=== PATIENT | female | born 1980 | race Caucasian/White ===

== ENCOUNTER 2019-03-21 10:09 | Emergency (ER) | payer BC, OTHER ==
--- NOTE | 2019-03-21 10:52 | ED ---
GI/ HPI - HPI Summary HPI Summary: 38 year old female presents to the emergency department with a chief complaint of rectal pain secondary to a swollen bulge near the anus starting yesterday. Patient had been constipated for a week before pain symptoms started. She reports light hematochezia over the last week. Stool consistency has improved over the last several days. Walking quickly and sitting exacerbates the pain. No history of rectal prolapse, htn, and dm. She takes cholase three times a day, eats a high fiber diet. This is her first . Medications reviewed. Allergies noted. - History of Current Complaint Chief Complaint: EDRectalPain Time Seen by Provider: 03/21/19 10:35 Stated Complaint: -POSSIBLE RECTAL PROLAPSE Hx Obtained From: Patient Onset/Duration: Started Days Ago Timing: Constant Severity: Moderate Current Severity: Moderate Pain Intensity: 5 Location of Pain: Rectal Pain Characteristics: Aching Associated Signs and Symptoms: Positive: Rectal Pain, Constipation, Blood w/ Stool Aggravating Factor(s): Sitting, Walking/Exertion Alleviating Factor(s): Nothing - Allergy/Home Medications Allergies/Adverse Reactions: Allergies Allergy/AdvReac Type Severity Reaction Status Date / Time crab Allergy Vomiting Verified 03/21/19 10:15 PMH/Surg Hx/FS Hx/Imm Hx Endocrine/Hematology History: Denies: Hx Diabetes Cardiovascular History: Denies: Hx Hypertension GI History: Denies: Other GI Disorders - rectal prolapse Infectious Disease History: No Infectious Disease History: Denies: Traveled Outside the [place] in Last 30 Days - Family History Known Family History: Negative: Diabetes - Social History Alcohol Use: Occasionally Substance Use Type: Reports: None Smoking Status (MU): Never Smoked Tobacco Review of Systems Positive: Other - Constipation, Rectal pain, rectal prolapse Positive: Edema All Other Systems Reviewed And Are Negative: Yes Physical Exam - Summary Physical Exam Summary: Constitutional: Well-developed, Well-nourished, Alert. (-) Distressed Skin: Warm, Dry HENT: Normocephalic; Atraumatic Eyes: Conjunctiva normal Neck: Musculoskeletal ROM normal neck. (-) JVD, (-) Stridor, (-) Tracheal deviation Cardio: Rhythm regular, rate normal, Heart sounds normal; Intact distal pulses; Radial pulses are 2+ and symmetric. (-) Murmur. Rectal Exam: Hemorrhoid present, not bleeding or ecchymotic. Pulmonary/Chest wall: Effort normal. (-) Respiratory distress, (-) Wheezes, (-) Rales Abd: Soft, (-) tenderness, (-) Distension, (-) Guarding, (-) Rebound Musculoskeletal: (-) Edema Lymph: (-) Cervical adenopathy Neuro: Alert, Oriented x3 Psych: Mood and affect Normal Triage Information Reviewed: Yes Vital Signs On Initial Exam: Initial Vitals Temp Pulse Resp BP Pulse Ox 97.4 F 89 16 121/74 98 03/21/19 10:12 03/21/19 10:12 03/21/19 10:12 03/21/19 10:12 03/21/19 10:12 Vital Signs Reviewed: Yes Procedures - Sedation Patient Received Moderate/Deep Sedation with Procedure: No Diagnostics - Vital Signs Vital Signs Temp Pulse Resp BP Pulse Ox 03/21/19 10:12 97.4 F 89 16 121/74 98 - Laboratory Lab Statement: Any lab studies that have been ordered have been reviewed, and results considered in the medical decision making process. GIGU Course/Dx - Course Course Of Treatment: Patient is here with a hemorrhoid secondary to constipation from . Patient was educated on hemorrhoid management and started on Anusol, sits baths, Preparation H with lidocaine. Patient has appointment with her [facility] tomorrow for prompt follow-up. - Diagnoses Provider Diagnoses: Hemorrhoid Discharge ED - Sign-Out/Discharge Documenting (check all that apply): Patient Departure - discharge - Discharge Plan Condition: Stable Disposition: HOME Prescriptions: Hydrocortisone SUPP* [Anusol HC Supp*] 25 mg DC QAM 5 Days #5 supp Patient Education Materials: Hemorrhoids (ED) Referrals: Shayna Vila MD [Primary Care Provider] - Additional Instructions: epsom salts donut pillow preperation H with lidocaine Follow up with your OBGYN in the next week. You may take an Epsom salt bath 2-3 times a day to reduce inflammation, use a donut pillow to aide sitting, or use preperation H with lidocaine to reduce pain. Return to the ED with new or worsening symptoms. - Billing Disposition and Condition Condition: STABLE Disposition: Home - Attestation Statements Document Initiated by Scribe: Yes Documenting Scribe: Sudhakar Dobbs Provider For Whom Scribe is Documenting (Include Credential): Rehan Aguilar MD Scribe Attestation: ISudhakar, scribed for Rehan Aguilar MD on 03/21/19 at 2046. Scribe Documentation Reviewed: Yes Provider Attestation: The documentation as recorded by the scribe, Sudhakar Dobbs accurately reflects the service I personally performed and the decisions made by me, Rehan Aguilar MD Status of Scribe Document: Viewed
[2019-03-21 11:40] VITALS: BP 126/69
== END 2019-03-21 11:29 | disposition home or self-care (01) ==
LOC: ED 10:09
DX: O22.40 Hemorrhoids in pregnancy, unspecified trimester (principal); K92.1 Melena; K59.00 Constipation, unspecified; Z3A.00 Weeks of gestation of pregnancy not specified; Z91.013 Allergy to seafood
CPT/HCPCS: 99282

== ENCOUNTER 2019-05-13 01:22 | Inpatient (IN) | payer BC, OTHER ==
[2019-05-13] MEDS ORDERED: OXYTOCIN* 10 UNITS/ML 1 ML VIAL IM ONE (02:11)
[2019-05-13] MEDS ORDERED: Glycerin ADULT SUPP PR PRN (02:11)
--- NOTE | 2019-05-13 02:47 | HP ---
General Information - Reason for Visit contractions - General Information Maternal Age: 38 Grav: 1 Para: 0 SAB: 0 IEA: 0 Estimated Due Date: 05/31/19 Determined By: LMP Maternal Blood Type and Rh: B Positive - Results this Serology/RPR Result: Non-Reactive Rubella Result: Immune HBsAg Result: Negative HIV Result: Negative GBS Culture Result: Negative Past Medical History Pertinent Past Medical History: See Records Pertinent Past Surgical History: See Records Pertinent Family History: See Records - Antepartal Records Antepartal Records: Reviewed, Complicated by: - + emelia / Review of Systems Constitutional: Uncomfortable CV Complaint: No Respiratory: Shortness of Breath: No Musculoskeletal: Contractions Neurological: No Headache Movement: Normal Exam Allergies/Adverse Reactions: Allergies crab Allergy (Verified 03/21/19 10:15) Vomiting - Measurements Height: 5 ft 5 in Weight: 136 lb Weight in lbs: [id number] Body Mass Index (BMI): 22.6 Pre- Weight: 113 lb Weight Gained This : 23 lbs and 0 ozs - Exam Extremities: No Edema Heart: Normal Rhythm/Heart Sounds HEENT: No Significant Findings Lungs: Clear Bilaterally Rectal: Rectal Exam Deferred Reflexes: DTR 2+ Targeted Exam Findings Cervical Exam: Complete Effacement: 100% Station: +2 Presenting Part: Vertex Membrane Status: SROM EFM Findings - External Monitor Findings Baseline Heart Rate: 115 External Monitor Findings: Accelerations Present, No Pattern of Variable or Late Decelerations, Variability Moderate, Baseline Stable Contractions: Regular Assessment/Plan - Assessment admitted / pushing . steady descent with delivery/ precipitous labor - Plan Plan: Admit - Anticipate Vaginal Delivery
[2019-05-13] MEDS ORDERED: Lactated Ringers 1000 ML Bag* 1,000 ML IV SCH (03:00)
[2019-05-13] MEDS: Ibuprofen TAB* 600 MG PO PRN ×3 (03:52→19:40)
[2019-05-13] MEDS: Dibucaine 1% 28.35 GM TUBE PR PRN ×2 (03:53→21:34)
[2019-05-13] MEDS: Witch Hazel PAD* JAR TOPICAL PRN (03:53)
[2019-05-13] MEDS ORDERED: Ammonia Inhalant* 1 EA AMP ONE (04:47)
[2019-05-13] MEDS ORDERED: Lidocaine 1% INJ* 10 MG/ML 30 ML SDV ONE (06:33)
[2019-05-13] MEDS: Acetaminophen TAB* 325 MG PO PRN (09:11)
[2019-05-13] MEDS: Docusate CAP* 100 MG PO SCH ×3 (09:11→21:34)
--- NOTE | 2019-05-13 10:12 | PROCNOTE ---
[facility] OB: Delivery Note - Delivery A Date of : 05/13/19 Time of : 01:43 Sex: Male Weight at : 5 lb 9 oz Score 1 Minute: 9 Score 5 Minutes: 9 Gestational Age in Weeks and Days at Delivery: 37 Weeks and 3 Days Delivery Method: Spontaneous Vaginal Labor: Spontaneous Did Patient attempt ?: N/A, No Previous Amniotic Fluid: Clear Anesthesia/Analgesia: None Delivered By: Adarsh Christian - Nursery Level of Nursery: Regular/Bedside - Perineum Perineal Injury: Periurethral Laceration, 2nd Degree Perineal Repair: By Delivering Practioner - repair with 3-0 vicryl and rapide - Events Delivery Events of Note: Pitocin Only After Delivery, Precipitous Delivery - pt pushe well with deep variables toward end of 2nd stage. baby vigorous at
[2019-05-13] MEDS: Simethicone TAB* 80 MG TAB.CHEW PO SCH ×3 (11:31→19:02)
[2019-05-14] MEDS: Ibuprofen TAB* 600 MG PO PRN ×3 (02:42→20:32)
[2019-05-14] MEDS: Acetaminophen TAB* 325 MG PO PRN ×4 (03:54→20:32)
[2019-05-14 05:56] LABS: ABS Eosinophils 0.1 10^3/ul (0-0.6); ABS Lymphocytes 1.8 10^3/ul (1.0-4.8); ABS Monocytes 0.6 10^3/ul (0-0.8); Eosinophil % 1.6 %; Hematocrit 25 % (35-47); Hemoglobin 8.6 g/dL (12.0-16.0); Lymphocyte % 20.9 %; Mean Corpuscular HGB Conc 34 g/dL (31-36); Mean Corpuscular Hemoglobin 30 pg (27-31); Mean Corpuscular Volume 87 fL (80-97); Nucleated Red Blood Cells % 0.1; Platelet Count 200 10^3/uL (150-450); Red Blood Count 2.87 10^6 /uL (3.70-4.87); Red Cell Distribution Width 14 % (10-15); White Blood Count 8.5 10^3/uL (3.5-10.8)
[2019-05-14] MEDS: Docusate CAP* 100 MG PO SCH ×3 (09:03→20:32)
[2019-05-14] MEDS: Ferrous Gluconate TAB* 324 MG TAB PO SCH (10:34)
--- NOTE | 2019-05-14 13:04 | PTEDU ---
Patient Name: ARMOND PENN PENNARMOND selected video: BBOB: Nurturing Your Gorgeous &Growing Baby by to view on 05/14/2019 at 1:03:47 PM [id number]
--- NOTE | 2019-05-14 18:44 | PN ---
Progress Note - Progress Note Date of Service: 05/14/19 Note: POST PROGRESS NOTE S: Pt is Para 1 pp d #1 s/p at 37 weeks. Doing well today. Voiding spontaneouslly. Lochia minimal. Pain well controlled. O: AVSS, afebrile, hemodynamically stable Gen: nad, aaox3 CV: RRR Pulm: ctabl Abd: soft, nd, nttp, fundus firm below the U : 2nd degree perineal laceration in tact, healing well, no evidence of breakdown or infection Ext: warm, nttp A/P: 38 y/o P1 PPD #1 s/p at 37 weeks, result of IVF - doing well - anemia noted, pt is asymptomatic, declines Fe, for fear of constipation and further exacerbation of hemorrhoids which have been very troubling for patient. discussed replenishing Fe in diet, continue GI regimen - meeting all post goals - continue routine care to perineum - continue witch leticia/tucks to hemorrhoids - - continue routine post care DO CLIFF Cox
[2019-05-15] MEDS: Dibucaine 1% 28.35 GM TUBE PR PRN ×2 (04:48→13:38)
[2019-05-15] MEDS: Witch Hazel PAD* JAR TOPICAL PRN ×2 (04:48→13:38)
[2019-05-15 08:17] VITALS: BP 105/64
[2019-05-15] MEDS: Ferrous Gluconate TAB* 324 MG TAB PO SCH (09:05)
[2019-05-15] MEDS: Acetaminophen TAB* 325 MG PO PRN (09:08)
[2019-05-15] MEDS: Docusate CAP* 100 MG PO SCH ×2 (09:08→13:38)
[2019-05-15] MEDS: Ibuprofen TAB* 600 MG PO PRN (09:08)
--- NOTE | 2019-05-25 16:11 | PROCNOTE ---
[facility] OB: Delivery Note - Delivery A Date of : 05/13/19 Time of : 01:43 Sex: Female Weight at : 5 lb 9 oz Score 1 Minute: 9 Score 5 Minutes: 9 Gestational Age in Weeks and Days at Delivery: 37 Weeks and 3 Days Delivery Method: Spontaneous Vaginal Labor: Spontaneous Did Patient attempt ?: N/A, No Previous Amniotic Fluid: Clear Anesthesia/Analgesia: None Delivered By: Adarsh Christian - Nursery Level of Nursery: Regular/Bedside - Perineum Perineal Injury: 2nd Degree - repair with 3-0 vicryl and rapide Perineal Injury Comment: hemorrhoids not inflamed Perineal Repair: By Delivering Practioner - Events Delivery Events of Note: Pitocin Only After Delivery, Precipitous Delivery - pt pushe well with deep variables toward end of 2nd stage. baby vigorous at
== END 2019-05-15 17:10 | disposition home or self-care (01) | DRG 807 ==
LOC: MCHOBOUT 01:22 → MCHOB 01:23
PROVIDERS: ADMIT Obstetrics & Gynecology; ATTEND Obstetrics & Gynecology
PROC: 10E0XZZ Delivery of Products of Conception, External Approach (ICD-10-PCS; principal; 2019-05-13)
PROC: 0KQM0ZZ Repair Perineum Muscle, Open Approach (ICD-10-PCS; 2019-05-13)
DX: O60.20X0 Term delivery with preterm labor, unspecified trimester, not applicable or unspecified (principal); Z37.0 Single live birth; O70.1 Second degree perineal laceration during delivery; O62.3 Precipitate labor; O90.81 Anemia of the puerperium; D64.9 Anemia, unspecified; Z3A.37 37 weeks gestation of pregnancy
CPT/HCPCS: 36415; 85025; A9270-GY; J2590